=== PATIENT | female | born 1975 ===

== ENCOUNTER 2024-02-03 09:48 | Outpatient (AMB) | payer MEDICAID, SELFPAY ==
--- NOTE | 2024-02-03 09:50 | A.OFFVIS_ITS ---
Vital Signs 3 02/03/24 09:53 Height 5 ft 1 in Weight 165 lb BMI 31.2 BP 110/78 Blood Pressure Location Rt brachial Position Sitting Respiration 14 Pulse 65 Pulse Source Pulse Oximeter Pulse Oximetry (%) 99 Oxygen Delivery Method Room Air Intake Visit Reasons: R cervical radiculopathy, lumbar disc disease Allergies No Known Allergies Allergy (Unknown, Verified 02/03/24 09:55) NOT APPLICABLE Medication List - Last Reconciled 02/03/24 by Zoie Townsend LPN [id number] 600-50-300 mg (Triumeq) 1 tab PO DAILY ibuprofen 600 mg PO TID PRN HPI HPI R cervical radiculopathy, lumbar disc disease: Details: 48-year-old female who presents today to the office for an evaluation of right cervical radiculopathy. She reports neck pain that started several years ago and radiates down to her arm. She also reports numbness in her fingers. She rates her pain at 6/10. She states that massages and hot compression alleviate the pain. She did physical therapy about two years ago. She takes Tylenol and Motrin for pain. She receives Toradol injections every six weeks, but these only provide relief for a few days. She has a lipoma on her right shoulder, which is painful. [facility] Medical History (Updated 02/03/24 @ 10:25 by Zander Lehman MD) Lipoma of right shoulder Left navicular fracture of foot Chronic hepatitis C virus genotype 1a infection Gastric stenosis Epidermoid cyst Upton's palsy Review of Systems Const All systems reviewed & are unremarkable except as noted in HPI and below Physical Exam Vital Signs: Last Vital Signs Pulse 65 02/03/24 09:53 Resp 14 02/03/24 09:53 BP 110/78 02/03/24 09:53 Pulse Ox 99 02/03/24 09:53 Oxygen Delivery Method Room Air 02/03/24 09:53 BMI result Body Mass Index 31.2 General: Appears afebrile. Alert and oriented. Mood and affect appropriate. Follows and participates in conversation appropriately. Respiratory effort is unlabored. Able to transition from sit to stand unassisted. Ambulates with bilaterally normal heel strike and toe off. Palpable lipomatous mass on the right shoulder. Results Reviewed Results Reviewed: 03/06/2017: US soft tissue head/neck. Assessment & Plan Assessment & Plan (1) Lipoma: Comment: right shoulder painful lipoma Code(s): D17.9 - Benign lipomatous neoplasm, unspecified Category: Medical (2) Cervical radiculitis: Code(s): M54.12 - Radiculopathy, cervical region Category: Medical Plan A referral was provided to physical therapy for six weeks. The patient will receive a call to schedule an appointment. A script was also provided to the patient for physical therapy. if pain continues to persist, we will order an MRI scan of neck for further evaluation. A referral was provided to surgeon for excision of lipoma on her shoulder. The patient will follow up in six weeks. Scribed for Dr. Lehman by Shalom Owens, medical research associate, on 02/03/2024. I, Dr. Lehman, have personally reviewed and agree with the information entered by the scribe. Orders: Orders 2 PT Evaluation and Treatment 02/03/24 M54.12 - Radiculopathy, cervical region Referrals 2 General Surgery Referral D17.9 - Benign lipomatous neoplasm, unspecified Coding Level of Care Code New Pt Level 4 (89190) Diagnoses Lipoma D17.9 Cervical radiculitis M54.12
[2024-02-03 09:53] VITALS: BP 110/78; PULSE 65; RESP 14; O2SAT 99; BMI 31.2
== END 2024-02-03 10:37 | disposition home or self-care (01) ==
PROVIDERS: PCP Physician Assistant; Visit Provider Internal Medicine
DX: D17.9 Benign lipomatous neoplasm, unspecified (principal); M54.12 Radiculopathy, cervical region
CPT/HCPCS: 99203

== ENCOUNTER → 2024-02-03 09:48 | Outpatient (BNVA) | payer MEDICAID, SELFPAY | PROVIDERS: PCP Physician Assistant; Visit Provider Internal Medicine | DX: M54.12 Radiculopathy, cervical region (principal); D17.39 Benign lipomatous neoplasm of skin and subcutaneous tissue of other sites | CPT/HCPCS: 99202 ==

== ENCOUNTER 2024-03-05 14:19 | Outpatient (AMB) | payer MEDICAID, SELFPAY ==
[2024-03-05 14:35] VITALS: BP 119/65; PULSE 71; BMI 33.7
--- NOTE | 2024-03-05 14:35 | MHC.OFFVIS ---
Vital Signs 03/05/24 14:35 Height 5 ft 1 in Weight 178 lb 8 oz BMI 33.7 BP 119/65 Blood Pressure Location Rt brachial Position Sitting Pulse 71 Intake Visit Reasons: Lipoma of shoulder Intake Note: This patient presents for an assessment for lipoma of the right shoulder. Patient c/o; reports pain and tenderness, right shoulder. Advertising Representative Required: Yes Advertising Representative Language: Australian Accompanied by: Self / Same As Patient Allergies No Known Allergies Allergy (Unknown, Verified 03/05/24 14:45) NOT APPLICABLE Medication List - Last Reconciled 03/05/24 by Johnson Ortega MD [id number] 600-50-300 mg (Triumeq) 1 tab PO DAILY ibuprofen 600 mg PO TID PRN HPI HPI Lipoma of shoulder: Details: [age] year old female referred for a lipoma in the right shoulder. She says that she has had this for about 9 years. She thinks this may have increased in size. He describes some discomfort and wants this removed. [facility] Medical History Lipoma of right shoulder Left navicular fracture of foot Chronic hepatitis C virus genotype 1a infection Gastric stenosis Epidermoid cyst Upton's palsy Surgical History No pertinent past surgical history Social History Unable to assess alcohol history related to: Unknown Patient Tobacco Use Status: Tobacco use Unknown Review of Systems Const Denies chills and Denies fever(s) Card Denies chest pain, Denies dyspnea and Denies dyspnea on exertion Resp Denies cough, Denies dyspnea and Denies dyspnea on exertion GI Denies hematochezia and Denies change in bowel habits Denies hematuria Musc Denies back pain and Denies limited range of motion Neuro Denies focal weakness and Denies convulsions Psych Denies depression and Denies mood swings Physical Exam Vital Signs: Last Vital Signs Pulse 71 03/05/24 14:35 BP 119/65 03/05/24 14:35 BMI result Body Mass Index 33.7 Const General: comfortable and no acute distress Orientation/consciousness: patient oriented x3 Neck Neck: Yes no lymphadenopathy Resp Auscultation: clear to auscultation bilaterally Cardio Rhythm: regular rhythm GI Palpation (GI): Soft to palpation, nontender and no guarding Back/Spine/Pelvis Other: Right shoulder with note a lipomatous mass, about 2 cm, well-defined Neuro General: patient oriented x3 Assessment & Plan Assessment & Plan (1) Lipoma: Comment: right shoulder painful lipoma Code(s): D17.9 - Benign lipomatous neoplasm, unspecified Category: Medical Plan: She wants this removed. I explained the technique of excision under local anesthesia. I reviewed the risks including but not limited to bleeding and infections, as well as the benefits and alternatives. She has given consent. This will be done in the office under local anesthesia Coding Level of Care Code New Pt Level 3 (40728) Diagnoses Lipoma D17.9
== END 2024-03-05 14:59 | disposition home or self-care (01) ==
PROVIDERS: PCP Physician Assistant; Referring Provider Physician Assistant; Visit Provider Surgery
DX: D17.9 Benign lipomatous neoplasm, unspecified (principal)
CPT/HCPCS: 99203

== ENCOUNTER → 2024-03-05 14:19 | Outpatient (BNVA) | payer MEDICAID, SELFPAY | PROVIDERS: PCP Physician Assistant; Visit Provider Surgery | DX: D17.9 Benign lipomatous neoplasm, unspecified (principal) | CPT/HCPCS: 99202 ==

== ENCOUNTER 2024-03-19 14:26 | Outpatient (REF) | payer MEDICAID, SELFPAY | END 2024-03-19 14:27 | disposition home or self-care (01) | LOC: HO.LNP 14:26 | PROVIDERS: PCP Physician Assistant; Visit Provider Surgery | DX: D17.21 Benign lipomatous neoplasm of skin and subcutaneous tissue of right arm (principal) | CPT/HCPCS: 11406; 88304 ==

== ENCOUNTER 2024-03-19 14:26 | Outpatient (AMB) | payer MEDICAID, SELFPAY ==
--- NOTE | 2024-03-19 14:30 | MHC.OFFVIS ---
Vital Signs 03/19/24 14:31 Height 5 ft 1 in Weight 180 lb BMI 34.0 BP 110/70 Blood Pressure Location Rt brachial Position Sitting Intake Visit Reasons: Lipoma of shoulder Intake Note: Office procedure: Lipoma of shoulder [employer] Der[employer] Operator Required: No Accompanied by: Other Relationship Allergies No Known Allergies Allergy (Unknown, Verified 03/19/24 14:41) NOT APPLICABLE HPI HPI Lipoma of shoulder: Details: She is here for excision of a lipoma from the short right shoulder. [facility] Medical History Lipoma of right shoulder Left navicular fracture of foot Chronic hepatitis C virus genotype 1a infection Gastric stenosis Epidermoid cyst Upton's palsy Surgical History No pertinent past surgical history Social History Unable to assess alcohol history related to: Unknown Patient Tobacco Use Status: Tobacco use Unknown Physical Exam Vital Signs: Last Vital Signs BP 110/70 03/19/24 14:31 BMI result Body Mass Index 34.0 Office Procedures Excision Details: She was in reclining position turned to the left to expose the right shoulder. The area of the lipoma on the right shoulder was prepped and draped. Lidocaine 1% was used for local anesthesia. I made an incision on the skin overlying the lipoma using blade 15. This carried down through the full-thickness of the skin and part of the subcutaneous fat until the lipomatous tissue was visualized. I sharply dissected the lipomatous tissue off the rest of the subcutaneous layer with fine scissors. I was able to then deliver the specimen through the incision. The lipoma measured about 4 cm in widest dimension There was note of good hemostasis. I closed the incision with full-thickness nylon 3-0 interrupted sutures. Dressings were applied. The procedure was completed. She tolerated procedure well. Estimated blood loss was less than 5 cc. 29962-zgdag/arms/legs >4cm Procedure code (CPT) selection complete Assessment & Plan Assessment & Plan (1) Lipoma: Comment: right shoulder painful lipoma Code(s): D17.9 - Benign lipomatous neoplasm, unspecified Category: Medical Plan: Excision was done under local anesthesia. She was given wound care instructions. I will see her in the office in about 2-3 weeks for removal sutures. She can shower after 24 hours. She can change her dressings after 24 hours as well. Coding Level of Care Code Procedure Only Diagnoses Lipoma D17.9 CPT Codes Trunk/Arms/Legs - CPT: 58639-wkhqt/arms/legs >4cm ([id number])
[2024-03-19 14:31] VITALS: BP 110/70; BMI 34.0
== END 2024-03-19 15:20 | disposition home or self-care (01) ==
PROVIDERS: PCP Physician Assistant; Visit Provider Surgery
DX: D17.1 Benign lipomatous neoplasm of skin and subcutaneous tissue of trunk (principal)
CPT/HCPCS: 11406

== ENCOUNTER 2024-03-20 10:52 | Outpatient (AMB) | payer MEDICAID, SELFPAY ==
--- NOTE | 2024-03-20 11:02 | A.OFFVIS_ITS ---
Vital Signs 03/20/24 11:03 Height 5 ft 1 in BP 121/63 Blood Pressure Location Lt brachial Position Sitting Respiration 14 Pulse 80 Pulse Source Pulse Oximeter Pulse Oximetry (%) 99 Oxygen Delivery Method Room Air Intake Visit Reasons: f/u post PT Allergies No Known Allergies Allergy (Unknown, Verified 03/19/24 14:41) NOT APPLICABLE HPI HPI f/u post PT: Details: 48-year-old female who presents today to the office for follow-up post-physical therapy. She reports some relief from the physical therapy. She continues to have neck pain that mostly radiates down to her right arm. She endorses tingling and numbness in her right fingers. She has been doing physical therapy. She received Toradol injections every six weeks in the past, but these only provide relief for a few days. She has no implants in her body. [facility] Medical History Lipoma of right shoulder Left navicular fracture of foot Chronic hepatitis C virus genotype 1a infection Gastric stenosis Epidermoid cyst Upton's palsy Surgical History No pertinent past surgical history Social History Unable to assess alcohol history related to: Unknown Patient Tobacco Use Status: Tobacco use Unknown Review of Systems Const All systems reviewed & are unremarkable except as noted in HPI and below Physical Exam Vital Signs: Last Vital Signs Pulse 80 03/20/24 11:03 Resp 14 03/20/24 11:03 BP 121/63 03/20/24 11:03 Pulse Ox 99 03/20/24 11:03 Oxygen Delivery Method Room Air 03/20/24 11:03 General: Appears afebrile. Alert and oriented. Mood and affect appropriate. Follows and participates in conversation appropriately. Respiratory effort is unlabored. Able to transition from sit to stand unassisted. Ambulates with bilaterally normal heel strike and toe off. Results Reviewed Results Reviewed: No imaging is available for review. Assessment & Plan Assessment & Plan (1) Cervical radiculitis: Code(s): M54.12 - Radiculopathy, cervical region Category: Medical Plan I ordered a cervical MRI scan for further evaluation of cervical radiculitis and radiculopathy symptoms. The patient will receive a call to schedule an appointment for an MRI scan. Once I have reviewed the MRI result, we will likely schedule a cervical FRANCISCO in combination with continuing physical therapy. For the time being, I encouraged her to continue with physical therapy. Patient is in agreement with the plan. Scribed for Dr. Lehman by Shalom Owens, forensic medical examiner, on 03/20/2024. I, Dr. Lehman, have personally reviewed and agree with the information entered by the scribe. Orders: Orders MR cervical spine wo con 03/20/24 M54.12 - Radiculopathy, cervical region Coding Level of Care Code Est Pt Level 3 (98263) Diagnoses Cervical radiculitis M54.12
[2024-03-20 11:03] VITALS: BP 121/63; PULSE 80; RESP 14; O2SAT 99
--- NOTE | 2024-03-20 11:03 | A.OFFVIS_ITS ---
Vital Signs 03/20/24 11:03 Height 5 ft 1 in BP 121/63 Blood Pressure Location Lt brachial Position Sitting Respiration 14 Pulse 80 Pulse Source Pulse Oximeter Pulse Oximetry (%) 99 Oxygen Delivery Method Room Air Intake Visit Reasons: f/u post PT Allergies No Known Allergies Allergy (Unknown, Verified 03/19/24 14:41) NOT APPLICABLE [facility] Medical History Lipoma of right shoulder Left navicular fracture of foot Chronic hepatitis C virus genotype 1a infection Gastric stenosis Epidermoid cyst Upton's palsy Surgical History No pertinent past surgical history Social History Unable to assess alcohol history related to: Unknown Patient Tobacco Use Status: Tobacco use Unknown Physical Exam Vital Signs: Last Vital Signs Pulse 80 03/20/24 11:03 Resp 14 03/20/24 11:03 BP 121/63 03/20/24 11:03 Pulse Ox 99 03/20/24 11:03 Oxygen Delivery Method Room Air 03/20/24 11:03 Assessment & Plan Assessment & Plan Orders: Orders MR cervical spine wo con Today M54.12 - Radiculopathy, cervical region Coding
== END 2024-03-20 11:16 | disposition home or self-care (01) ==
PROVIDERS: PCP Physician Assistant; Visit Provider Internal Medicine
DX: M54.12 Radiculopathy, cervical region (principal)
CPT/HCPCS: 99213

== ENCOUNTER → 2024-03-20 10:52 | Outpatient (BNVA) | payer MEDICAID, SELFPAY | PROVIDERS: PCP Physician Assistant; Visit Provider Internal Medicine | DX: M54.12 Radiculopathy, cervical region (principal); R20.2 Paresthesia of skin; R20.0 Anesthesia of skin | CPT/HCPCS: 99212 ==

== ENCOUNTER 2024-04-06 10:46 | Outpatient (AMB) | payer MEDICAID, SELFPAY ==
--- NOTE | 2024-04-06 10:47 | A.OFFVIS_ITS ---
Vital Signs 04/06/24 10:52 Height 5 ft 1 in Weight 180 lb 0.013 oz BMI 34.0 Intake Visit Reasons: post off proc, exc shoulder lipoma Intake Note: This patient presents for follow-up status post excision painful right shoulder lipoma. Pt c/o; reports no complaints. [employer] Se[employer] Required: No Accompanied by: Self / Same As Patient Allergies No Known Allergies Allergy (Unknown, Verified 04/06/24 10:53) NOT APPLICABLE HPI HPI post off proc, exc shoulder lipoma: Details: She underwent excision of a shoulder lipoma last 03/19/2024. She tolerated the procedure well and currently denies significant complaints. [facility] Medical History Lipoma of right shoulder Left navicular fracture of foot Chronic hepatitis C virus genotype 1a infection Gastric stenosis Epidermoid cyst Upton's palsy Surgical History Status post excision of lipoma (~03/19/24) Social History Unable to assess alcohol history related to: Unknown Patient Tobacco Use Status: Tobacco use Unknown Review of Systems Const Denies chills and Denies fever(s) Physical Exam Const General: comfortable and no acute distress Chest Other: Excision site the right shoulder is well healed, not infected, sutures intact Assessment & Plan Assessment & Plan (1) Lipoma: Comment: right shoulder painful lipoma Code(s): D17.9 - Benign lipomatous neoplasm, unspecified Category: Medical Plan: Status post excision. The incision is well healed. I removed all her sutures. Her path report shows a lipoma. She can follow up on a p.r.n. basis. Coding Level of Care Code Global (29040) Diagnoses Lipoma D17.9
[2024-04-06 10:52] VITALS: BMI 34.0
== END 2024-04-06 10:56 | disposition home or self-care (01) ==
PROVIDERS: PCP Physician Assistant; Visit Provider Surgery
DX: D17.9 Benign lipomatous neoplasm, unspecified (principal)
CPT/HCPCS: 99024

== ENCOUNTER → 2024-04-06 10:46 | Outpatient (BNVA) | payer MEDICAID, SELFPAY | PROVIDERS: PCP Physician Assistant; Visit Provider Surgery | DX: D17.9 Benign lipomatous neoplasm, unspecified (principal) | CPT/HCPCS: 99212 ==

== ENCOUNTER → 2024-05-10 10:39 | Outpatient (BNV) | payer MEDICAID, SELFPAY | PROVIDERS: PCP Physician Assistant; Visit Provider Radiology Diagnostic Radiology | DX: M54.12 Radiculopathy, cervical region (principal) | CPT/HCPCS: 72141 ==

== ENCOUNTER 2024-05-10 10:41 | Outpatient (REF) | payer MEDICAID, SELFPAY ==
--- NOTE | ~2024-05-10 | MR_ITS ---
EXAMINATION: MR CERVICAL SPINE WITHOUT CONTRAST CLINICAL INFORMATION: Bilateral upper extremity weakness, numbness and pain. COMPARISON: None available. TECHNIQUE: MRI of the cervical spine was obtained using routine sequences without contrast. FINDINGS: Submitted for interpretation on 06/12/2024.. Craniocervical junction is intact. No bone marrow STIR signal abnormality. Multilevel disc desiccation and marginal osteophyte formation more conspicuous at C5-6. The alignment is normal. The cervical spinal cord signal is normal. C2-3: Central disc osteophyte complex formation. No cord compression. No neuroforamina stenosis. C3-4: There is a central herniated disc with cephalad migration beneath the posterior longitudinal ligament resulting in ventral deformity of the spinal cord. No cord signal abnormality. Reduced AP diameter of the thecal sac. No neuroforamina stenosis. C4-5: Central broad-based disc osteophyte compresses formation resulting in ventral deformity of the spinal cord. No cord compression. No cord signal abnormality. No neuroforamina stenosis. C5-6: Central broad-based disc osteophyte complex formation resulting in ventral deformity of spinal cord. No cord signal abnormality. Left neuroforamina narrowing on a degenerative basis. C6-7: Central disc osteophyte complex formation. Ventral deformity of the thecal sac. No cord compression. No neuroforamina stenosis. C7-T1: [Neural cyst. No central spinal canal or neuroforamina stenosis. No prevertebral compartment hematoma, mass or fluid collection. Flow-void signal within the main cerebral vessels is normal. Right vertebral artery slightly dominant. MR/MR cervical spine wo con IMPRESSION: Central extruded disc with cephalad migration and cord deformity without edema and or myelopathy at C3-4. Impingement syndrome should be considered in the correct clinical settings . Multilevel cervical spondylosis C3 C6 resulting in central spinal canal stenosis. Electronically signed by: Aleksander Medina MD 06/12/2024 08:38 AM EDT
== END 2024-05-10 10:42 | disposition home or self-care (01) ==
LOC: HO.MRI 10:41
PROVIDERS: PCP Physician Assistant; Visit Provider Internal Medicine
DX: M54.12 Radiculopathy, cervical region (principal)
CPT/HCPCS: 72141

== ENCOUNTER 2024-07-16 06:12 | Outpatient (REF) | payer MEDICAID, SELFPAY | END 2024-07-16 06:13 | disposition home or self-care (01) | LOC: CF 06:12 | PROVIDERS: Visit Provider Internal Medicine | DX: Z13.89 Encounter for screening for other disorder (principal) ==